=== PATIENT | female | born 1930 | race Caucasian/White ===

== ENCOUNTER 2018-11-08 11:06 | Inpatient (IN) ==
[2018-11-08] MEDS ORDERED: Lidocaine -MPF 4% 5 ML AMPUL ONE (11:19)
[2018-11-08] MEDS ORDERED: *HR* Succinylcholine 200 MG/10 ML VIAL IVP ONE (11:21)
[2018-11-08] MEDS ORDERED: Ondansetron 4 MG/2 ML VIAL ONE (11:21)
[2018-11-08] MEDS ORDERED: *HR* FentaNYL (PF) 100 MCG/2 ML VIAL ONE (11:21)
[2018-11-08] MEDS ORDERED: Dexamethasone 4 MG/ML VIAL ONE (11:21)
[2018-11-08] MEDS ORDERED: Lidocaine -MPF 2% 2 ML VIAL ONE (11:21)
[2018-11-08] MEDS ORDERED: *HR* Propofol 200 MG/20 ML VIAL IVP ONE (11:22)
[2018-11-08] MEDS ORDERED: CeFAZolin Syr 2,000MG/20 ML 2,000 MG/20 ML SYRINGE IVPB ONE (11:24)
--- NOTE | 2018-11-08 11:25 | Anesthesia Evaluation PreOp ---
Date of Encounter: 11/08/18 Time of Encounter: 11:23 - Past History Planned Operation: Left Robotic Total Hip Arthroplasty Cardiac History: Other (anemia transfused with 2 units of PRBC Tuesday) Pulmonary History: Denies Any Significant HX AUTO MECHANIC History: Denies Any Significant HX Other Medical History: Denies Any Significant HX, Other (osteoporosis) Anesthesia History: No Prior Anesthetic Complications, Past Anesthesia (tubal, [place] Teeth) : No Alcohol Use: none Drug use: none Medications and Allergies Amoxicillin 875 mg PO BID #20 tablet 02/03/17 [Rx] Guaifenesin [Mucinex] 600 mg PO BID #20 tab.er.12h 02/03/17 [Rx] Loratadine [Allergy Relief] 10 mg PO DAILY #30 tablet 02/03/17 [Rx] Allergy/AdvReac Type Severity Reaction Status Date / Time No Known Allergies Allergy Verified 10/31/18 12:52 - Meds/Allergy Pre-op Review Medications Reviewed: Yes Allergies Reviewed: Yes Beta Blockers on Current Med List: No Anesthesia Results - Labs Laboratory Tests 10/31/18 10/31/18 11/05/18 13:05 13:05 14:26 WBC 4.3 RBC 3.18 L Hgb 11.3 L D Hct 32.9 L Plt Count 335 INR 1.1 Sodium 138 Potassium 4.0 Chloride 104 Carbon Dioxide 24 BUN 15 Creatinine 0.48 L - Imaging EKG: report reviewed (SR) Anesthesia Exam Vital Signs/O2 Sat, Most Current Temp Pulse Resp BP Pulse Ox 98.0 F 65 18 145/67 98 11/08/18 11:30 11/08/18 11:30 11/08/18 11:30 11/08/18 11:30 11/08/18 11:30 NPO (# of Hours): > 8 hrs Pain Scale: 0 Pain Scale Used: Numeric (1 - 10) - HEENT Pupil (Motor): Pupils equal, EOMI Mallampati: I Teeth: Missing Denture Type: Upper: Complete Oral Opening: Greater than 3 - AUTO MECHANIC LOC: Oriented AUTO MECHANIC Motor: Normal RUE, Normal LUE, Normal RLE, Normal LLE, Normal Face AUTO MECHANIC Sensory: Normal: RUE, LUE, RLE, LLE, Face - Cardiac Rhythm: Regular Murmur: None JVD: No Carotid Bruit: No - Pulmonary Breath Sounds: bilateral Clear Respiratory Effort: Symmetrical Anesthesia Assess/Plan ASA Score: 3 Level of consciousness: Cooperative Anesthetic Plan: General Reason for No Neuroaxial/Regional Block: Patient refusal Autologous Blood: Yes Monitoring Plan: Standard Monitors Recovery Plan: PACU
[2018-11-08] MEDS ORDERED: Ringers Solution, Lactated 1,000 ML IVC SCH (11:30)
--- NOTE | 2018-11-08 12:00 | History & Physical Report ---
Date of Encounter: 11/08/18 Time of Encounter: 11:59 24 Hour HP Update - Instructions Instructions: If the History and Physical is less than 30 days old and was completed prior to A.M. admission and or procedure and has NOT been updated on calendar day of procedure please complete this update prior to performing procedure. - Update Patient reports changes in Medical Condition: No Changes in examination, assessment, or condition: No Changes in Medication: No Preop tests/diagnostics Reviewed: Yes Surgery Remains Indicated: Yes Consent for Planned Operative Procedure(s) Verified: Yes - Pre-Operative Checklist Preoperative Checklist Indicated: No Prophylactic Antibiotic Ordered: Yes Is VTE Prophylaxis Indicated?: Yes
[2018-11-08] MEDS ORDERED: Ethanol\\Acetic Acid\\Na Ace\\Ben 1,000 ML IRRIG.SOLN IR ONE (12:31)
--- NOTE | 2018-11-08 12:39 | Discharge Summary ---
Orders not resulted at time of discharge: Pending orders 11/08/18 01:00 XR hip complete LT [XR] Routine Hemoglobin and Hematocrit [HEME] Routine 11/08/18 12:23 Type and Screen [BBK] Stat Date of Encounter: 11/10/18 Time of Encounter: 09:00 - Discharge Diagnosis (1) Arthritis of left hip Priority: Primary Status: Chronic (2) Status post total hip replacement, left Priority: Primary Status: Acute (3) Acute blood loss anemia Priority: Secondary Status: Acute (4) Osteoporosis Priority: Secondary Status: Chronic Qualifiers: Osteoporosis type: unspecified Presence of current pathological fracture: unspecified Qualified Code(s): M81.0 - Age-related osteoporosis without current pathological fracture (5) Macrocytic anemia Priority: Secondary Status: Chronic - Hospital Course Hospital course: Ms. Stanley is a 88 year old female s/p Date of procedure: 11/08/18 Pre-op diagnosis: Left hip arthritis Procedure: Procedure: Left Total Hip Replacment robotic-assisted Patient developed postoperative fatigue and hypotension and dizziness and found to have acute blood loss anemia requiring 2 units of PRBCs 1 each on 11/09 and 11/10 respectively. Patient progressed well with resolution of these symptoms post-transfusions. Patient being discharged to [facility] for rehab and outpatient Ortho follow up has been arranged. - Time Spent with Patient Total time spent providing and/or coordinating discharge services: - Discharge Medications Prescriptions: New Aspirin Enteric Coated [Aspirin EC] 325 mg PO BID 10 Days #20 tablet. Tizanidine HCl 2 mg PO Q8H PRN 7 Days #21 tablet PRN Reason: Spasms Continued Acetaminophen [Extra Strength Non-Aspirin] 500 mg PO TID Alendronate Sodium 70 mg PO MO Calcium Carbonate/Vitamin D3 [Calcium 600 + Vit D Tablet] 1 tab PO BID Polyethylene Glycol 3350 [MiraLAX] 17 gm PO DAILY PRN PRN Reason: Constipation Vit C/Vit E/Lutein/Min/Sunflower-3 [Ocuvite Softgel] 1 cap PO DAILY Home Medications: Acetaminophen [Extra Strength Non-Aspirin] 500 mg PO TID 11/08/18 [History] Alendronate Sodium 70 mg PO MO 11/08/18 [History] Aspirin Enteric Coated [Aspirin EC] 325 mg PO BID 10 Days #20 tablet. 11/08/18 [Rx] Calcium Carbonate/Vitamin D3 [Calcium 600 + Vit D Tablet] 1 tab PO BID 11/08/18 [History] Polyethylene Glycol 3350 [MiraLAX] 17 gm PO DAILY PRN 11/08/18 [History] Vit C/Vit E/Lutein/Min/Sunflower-3 [Ocuvite Softgel] 1 cap PO DAILY 11/08/18 [History] Tizanidine HCl 2 mg PO Q8H PRN 7 Days #21 tablet 11/10/18 [Rx] Allergies/Adverse Reactions: Allergy/AdvReac Type Severity Reaction Status Date / Time No Known Allergies Allergy Verified 10/31/18 12:52 Date of admission: 11/08/18 Primary care physician: Dario Doran MD Discharging clinician: Humberto Thompson Anticipated date of discharge: 11/11/18 - VTE Documentation of Mechanical Device: Venous foot pump, device - Patient Status Disposition: Transfer Inpatient Rehab Fac Condition: Good Functional capacity at discharge: uses cane/walker Overall status at discharge: patient is progressing back to baseline - Discharge Instructions Follow Up With: Edin Martins MD [Partnered Physician] - 11/24/18 8:45 am Eva Lopez PAC [Physician Science Instructor] - 11/16/18 10:15 am (Also, November 24 @ 1300) Humberto Thompson MD [Partnered Physician] - 12/06/18 4:50 pm Dario Doran MD [Primary Care Provider] - Additional Instructions: Discharge Instructions: Total Hip Replacement Please call [facility] ([phone]), your Primary Care Physician, or report to the Emergency Room if you have any of the following symptoms: Nausea, vomiting, fever greater that 101.5, swelling, chest pain, shortness of breath, increased pain/redness/drainage/odor for your incision site, numbness/tingling, or any other concerning symptoms. ACTIVITY:Weight-bearing as tolerated for 8 weeks with hip dislocation precautions that physical therapy taught you. You may progress as tolerated under the guidance of your physical therapist. You do not need to sleep with a pillow between your legs. You can also seep on the operative side or on your stomach. Incentive Spirometer 10 times an hour. MEDICATIONS: Upon discharge resume your home medications. Take all the medications as prescribed. Take a stool softener if taking narcotic pain medications. Stool softeners are only effective if you drink enough fluids. Drink 6-8 glass of water or fluids a day, unless this is not allowed for another health problem. Despite using stool softeners, if you haven't had a bowel movement in 3 days, please switch to a gentle laxative. Gentle laxatives are sold over the counter. You should have a bowel movement within 24 hours, if not call the office. You will be discharged from the hospital with a prescription for pain medication. You are encouraged to decrease the use of narcotic pain medication as tolerated. Should you require a refill, please call the office. [facility] prescribes narcotic pain medication for only 4-6 weeks after surgery. If you require pain medication beyond this time period, you may be referred to your Primary Care Physician or to the Pain Clinic for further evaluation. Plan ahead for refills on pain medication as many narcotics either need to be picked up at the office or mailed. It is best to call 48-72 hours in advance of needing a prescription refill so you don't run out of medication. To help control the post-operative pain, you may take NSAIDs (Aleve,Advil, Motrin, ibuprofen, naprosyn) or Tylenol as prescribed on the bottle in addition to the pain medication. ANTICOAGULATION (blood thinners): Continue your Aspirin, Lovenox or Coumadin as prescribed to help prevent a blood clot in the leg or in the lungs. As long as your incision remains dry and you tolerate the NSAIDs (Aleve, Advil, Motrin, Ibuprofen, Naprosyn), it is OK to use the NSAIDS while you are taking your anticoagulation medication. Should your incision start to drain, stop the NSAID and contact our office. Common symptoms of blood clot in the legs include: localized pain, swelling, calf tenderness, redness or discoloration of the skin. Blood clot in the lung symptoms include: shortness of breath, rapid pulse, sweating, and chest pain that worsens with deep breathing, coughing up blood, lightheadedness, feelings of anxiety. If you experience any of these symptoms notify your physician immediately, go to the emergency room, or if having trouble breathing, call 911. WOUND CARE: Leave the dressing on for 7 to 10days. You may change the dressing if it is saturated greater than 50%. Do not get the dressing wet at anytime. Wash your hands with antibacterial soap, rinse and dry prior to any wound care. If you have dustin the visiting nurse or rehab facility can remove the stapes 10-14 days after surgery and place steri-strips across the wound. Leave the steri-strips in place until they fall off on their own. You may let water from the shower run on top of the steri-strips. If you do not have a visiting nurse or rehab facility, you will need to return to the office at 10-14 days for the dustin to be removed. If you have itching or redness around the dressing call the office. FOLLOW-UP: Please follow up with your surgeon in the orthopedic clinic in 6 weeks from the day of surgery. If you have dustin that need to be removed, you will need to come back to the office in 10-14 days from the day of surgery. - Diet and Activity Activity: as per physical therapy Diet: advance to your usual diet
[2018-11-08] MEDS ORDERED: Acetaminophen IV 1,000 MG/100 ML INFUS..BTL ONE (13:14)
[2018-11-08] MEDS ORDERED: EPHEDrine 50 MG/ML VIAL ONE (13:30)
[2018-11-08] MEDS ORDERED: Tranexamic Acid 1,000 MG/10 ML VIAL ONE ×2 (13:37→13:41)
--- NOTE | 2018-11-08 14:10 | Orthopedic Operative Note ---
Date of procedure: 11/08/18 Pre-op diagnosis: Left hip arthritis Procedure: Procedure: Left Total Hip Replacment robotic-assisted Estimated blood loss: 200 cc Hardware: Metal and polyethylene replacement. Soham DM Cup: 50 cup Femoral size 5 anteverted Anato stem Head:0head with Tania Procedural Notes: Grade 4 arthritic changes femoral head acetabular socket, procedure performed with robotic assistance. 3 millimeters longer operative versus nonoperative leg is measured by preoperative CT scan. Operative procedure: The patient was brought to the operating room and placed on the operating room table. After general anesthesia was administered the patient was placed in the lateral decubitus position with the operative leg up. All pressure points were padded appropriately and the head was stabilized in the neutral position. The operative extremity was prepped and draped in the sterile surgical fashion patient received IV antibiotic prior to skin incision. 3 Steinmann pins were placed in the iliac crest 3 cm proximal to the anterior superior iliac spine this was for the robotic-assisted sensor. This was done through a small 2 cm incision. A standard posterior approach is made to the operative hip, the incision was made through the skin and subcutaneous tissue hemostasis was obtained with Bovie cautery. Using careful sharp dissection the fascia was identified and incised exposing the external rotators. The greater trochanter was marked, and length was measured at this time utilizing robotic assistance. The external rotators were released off the greater trochanter and tagged with #2 FiberWire suture. The capsule was T'd open and the hip was brought into internal rotation. Patient noted to have grade 4 arthritic changes femoral head. The femoral neck cut was made at the appropriate level roughly Xmm proximal to the lesser trochanter aced on preoperative templating. An anterior capsulotomy was performed for the anterior retractor. Soft tissues removed from the acetabulum. Patient noted to have grade 4 arthritic changes acetabulum. The acetabulum reference point was confirmed. The acetabulum was then mapped with robotic assistance. Based on the preoperative plan the acetabulum was reamed in one step with a 50 reamer. The 50 acetabulum was impacted with robotic assistance and 39 degrees of abduction and 25 degrees of anteversion. The hip was brought back in to internal rotation and prepared with the wash box operator followed by the canal finder followed by the reaming process to a size 11 broaching process in 20 degrees anteversion. It was broached up to the appropriate size 5 Trial reduction revealed leg lengths close to normal. The femoral implant was impacted in place in 20 degrees of anteversion. Trial reduction found the hip to be stable with 0 head and Tania. The trials were removed and the real implants were impacted in place. The hip was reduced. The hip had excellent stability with forward flexion to 90 degrees adduction of 30 degrees and internal rotation of 60 degrees. The hip had no shuck. The hip sat with an antibacterial solution. It was irrigated out with 2 L of pulse irrigation. The Steinmann pins were removed. The hip was closed by the PA. The deep tissue was irrigated and closed deep with #1 PDS suture superficially with 0 PDS suture and skin was closed with Dermabond and zip tie. The patient was placed in a sterile dressing and abduction pillow. The patient was extubated and transferred to the recovery room in stable condition. Anesthesia: CARLINA Surgeon: Humberto Thompson Was there an trust operations assistant present: No Estimated blood loss (cc): 200 Condition: stable Disposition: PACU
[2018-11-08] MEDS ORDERED: *HR* HYDROMORPHONE 2 MG/ML VIAL ONE (14:22)
[2018-11-08] MEDS ORDERED: *HR* OxyCODONE Immed Rel 5 MG TABLET PO PRN (14:42)
[2018-11-08] MEDS ORDERED: *HR* HYDROmorphone (PF) 1 MG/ML SYRINGE IVP PRN (14:42)
[2018-11-08] MEDS ORDERED: *HR* Nalbuphine 10 MG/ML AMPUL IV PRN (14:42)
[2018-11-08] MEDS ORDERED: Acetaminophen IV 1,000 MG/100 ML INFUS..BTL IVPB ONE (14:42)
[2018-11-08] MEDS ORDERED: Albuterol 2.5 MG/3 ML NEBULIZER IH ONE (14:42)
[2018-11-08] MEDS ORDERED: *HR* Promethazine 25 MG/ML VIAL IVP PRN ×2 (14:42→15:36)
[2018-11-08] MEDS ORDERED: Ondansetron 4 MG/2 ML VIAL IVP ONE (14:42)
[2018-11-08] MEDS ORDERED: Ketorolac 15 MG/ML VIAL IVP ONE (14:42)
--- NOTE | 2018-11-08 14:44 | Anesthesia Evaluation Post Op ---
Date of Encounter: 11/08/18 - Discharge PostOp Status: Transfer Patient to floor (Patient's vital signs have been reviewed. Patient is stable postoperatively and has adequately recovered from anesthesia. Patient is determined to have stable airway patency and respiratory function including respiratory rate and oxygen saturation. Patient has a stable heart rate, blood pressure and adequate hydration. Patients mental status is acceptable. Patients temperature is appropriate. Pain and nausea are adequately controlled.)
[2018-11-08 15:17] LABS: Hematocrit 27.3 % (35.3-44.9)
[2018-11-08] MEDS ORDERED: Temazepam 15 MG CAPSULE PO PRN (15:36)
[2018-11-08] MEDS ORDERED: Naloxone 0.4 MG/ML INJ IVP PRN (15:36)
[2018-11-08] MEDS ORDERED: MOM Conc 10 ML UD.LIQ PO PRN (15:36)
[2018-11-08] MEDS ORDERED: Sennosides 8.6 MG TABLET PO PRN (15:36)
[2018-11-08] MEDS ORDERED: Ondansetron 4 MG/2 ML VIAL IVP PRN (15:36)
--- NOTE | 2018-11-08 16:08 | Anesthesia Evaluation Post Op ---
Date of Encounter: 11/08/18 Time of Encounter: 15:41 - Discharge PostOp Status: Transfer Patient to floor (Patient's vital signs have been reviewed. Patient is stable postoperatively and has adequately recovered from anesthesia. Patient is determined to have stable airway patency and respiratory function including respiratory rate and oxygen saturation. Patient has a stable heart rate, blood pressure and adequate hydration. Patients mental status is acceptable. Patients temperature is appropriate. Pain and nausea are adequately controlled)
[2018-11-08] MEDS: Ascorbic Acid 500 MG TABLET PO SCH (17:05)
[2018-11-08] MEDS: *HR* Enoxaparin 30 MG/0.3 ML SYRINGE SQ SCH (17:05)
[2018-11-08] MEDS ORDERED: *HR* Enoxaparin 30 MG/0.3 ML SYRINGE SQ SCH (18:00)
[2018-11-08] MEDS: *HR* OxyCODONE Immed Rel 5 MG TABLET PO PRN (20:49)
[2018-11-08] MEDS: HYDROcodone BIT/Homatropine 5 MG TABLET PO PRN (23:10)
[2018-11-09] MEDS: *HR* OxyCODONE Immed Rel 5 MG TABLET PO PRN ×3 (01:56→20:49)
[2018-11-09] MEDS: HYDROcodone BIT/Homatropine 5 MG TABLET PO PRN ×3 (03:11→15:07)
[2018-11-09] MEDS: *HR* Enoxaparin 30 MG/0.3 ML SYRINGE SQ SCH ×2 (05:53→16:30)
--- NOTE | 2018-11-09 06:25 | Orthopedics Progress Note ---
Date of Encounter: 11/09/18 Time of Encounter: 06:25 - Assessment and Plan (1) Acute blood loss anemia Current Visit: Yes Status: Acute Subjective Interval history: Patient was seen this morning doing well without complaints. Afebrile vital signs stable. Operative extremity: Neurovascularly intact Dressing clean dry and intact Calves nontender Assessment and plan: Continue with postoperative care Postop hematocrit 27 we will check H&H this morning Objective Vital signs: Vital Signs Temp Pulse Resp BP Pulse Ox 11/09/18 03:24 98.3 F 83 18 128/57 95 11/08/18 22:49 98.2 F 65 16 108/57 94 11/08/18 18:44 97.7 F 62 16 121/61 98 11/08/18 18:04 97.8 F 58 15 118/68 98 11/08/18 17:09 97.3 F L 65 15 123/66 11/08/18 16:23 97.4 F L 62 14 134/71 11/08/18 15:53 97.3 F L 63 15 132/72 95 11/08/18 15:39 98.2 F 57 14 157/58 98 11/08/18 15:29 56 15 126/52 97 11/08/18 15:19 73 17 111/61 96 11/08/18 15:09 97.1 F L 67 12 110/50 97 11/08/18 14:59 55 14 89/59 98 11/08/18 14:49 60 15 81/41 99 11/08/18 14:39 97.8 F 70 14 127/55 98 11/08/18 12:57 61 18 121/80 95 11/08/18 12:35 98.0 F 65 18 145/67 98 11/08/18 11:30 98.0 F 65 18 145/67 98 Intake and Output 11/08/18 11/08/18 11/09/18 15:59 23:59 07:59 Intake Total 100 / 100 Output Total 200 / 200 Balance -200 / -100 100 / -100 Intake: IV Fluids 100 / 100 Ancef 2,000 MG In 0.9 % Sodium 100 / 100 Chloride 100 ML @ 200 mls/hr IVPB Q8H RENETTA Rx#:[id number] Output: Estimated Blood Loss 200 / 200 Other: # Voids 1 1 Weight 50.802 kg - Labs CBC & BMP: 05/08/19 14:54 Labs: Abnormal lab results Hgb 9.0 g/dL (11.5-15.4) L D 11/08/18 14:54 Hct 27.3 % (35.3-44.9) L 11/08/18 14:54 Consult Discharge Plan - Plan Referrals: Dario Doran MD [Primary Care Provider] -
[2018-11-09 07:33] LABS: Basophils % 0.1 %; Eosinophils % 0.2 %; Hematocrit 25.9 % (35.3-44.9); Hemoglobin 8.3 g/dL (11.5-15.4); Immature Granulocytes % 0.4 % (0-4); Lymphocytes # 0.7 K/mcL (0.6-4.6); Mean Corpuscular Hemoglobin 34.4 pg (28.0-33.3); Mean Corpuscular Volume 107.5 fL (83.0-100.0); Mean Platelet Volume 10.9 fL (9.4-12.4); Monocytes # 0.8 K/mcL (0.0-1.3); Monocytes % 9.2 %; Neutrophils # 6.9 K/mcL (1.6-8.9); Nucleated Red Blood Cells 0.2 /100 WBC (0); Platelet Count 249 K/mcL (140-400); Red Blood Count 2.41 M/mcL (3.82-4.97); Red Cell Distribution Width 18.6 % (11.5-14.5); Segmented Neutrophils % 82.1 %
--- NOTE | 2018-11-09 08:16 | Event Note ---
Date of Encounter: 11/09/18 Time of Encounter: 08:30 Date of procedure: 11/08/18 Pre-op diagnosis: Left hip arthritis Procedure: Left Total Hip Replacment robotic-assisted POD#1 Patient seen at bedside. A&Ox3 Dressing and incision c/d/i No calf tenderness, erythema, or warmth. Neurovascularly intact b/l LE. Labwork, vitals, and medications reviewed. H/H 8.3/25.9 Pain control: Adequate Participating in PT. All questions and concerns addressed. Educated on use of incentive spirometer, ambulation, and hydration. Patient educated on post-operative restrictions and care. Addressed: Patient currently c/o only of fatigue. No abnl vitals present at this time. Will closely monitor for symptomatic anemia as patient has history of macrocytic anemia for which she had received 2 units PRBCs the week prior to surgery. D/C plan: ECF - awaiting placement
[2018-11-09 08:33] LABS: BUN/Creatinine Ratio 32 (6-26); Blood Urea Nitrogen 20 mg/dL (8-23); Calcium 8.3 mg/dL (8.6-10.3); Carbon Dioxide 22 mEq/L (23-29); Chloride 107 mEq/L (98-107); Glucose 141 mg/dL (70-105); Osmolality,Calculated 283 (280-300); Potassium 3.7 mEq/L (3.5-5.1); Sodium 134 mEq/L (136-145); eGFR For Non-African Americans > 60 (> 60)
[2018-11-09] MEDS ORDERED: NON-FORMULARY MEDICATION 1 EACH EACH (Vit C/Vit E/Lutein/Min/Omega-3 [Ocuvite Softgel] 1 C PO SCH (09:00)
[2018-11-09] MEDS: Multivit/Ca/Min/Fe/FA 1 TAB TABLET PO SCH (09:13)
[2018-11-09] MEDS: Cholecalciferol (D-3) 1,000 UNIT TABLET PO SCH (09:13)
[2018-11-09] MEDS: Ascorbic Acid 500 MG TABLET PO SCH ×2 (09:13→17:03)
[2018-11-09 12:31] LABS: Hematocrit 24.4 % (35.3-44.9); Hemoglobin 7.9 g/dL (11.5-15.4)
[2018-11-09] MEDS ORDERED: 0.9 % Sodium Chloride 250 ML ONE (16:43)
[2018-11-09] MEDS ORDERED: Acetaminophen IV 1,000 MG/100 ML INFUS..BTL IVPB PRN (17:02)
[2018-11-09] MEDS: Ringers Solution, Lactated 1,000 ML IVC SCH ×3 (19:18→20:51)
[2018-11-10] MEDS: tiZANidine 4 MG TABLET PO PRN ×2 (00:05→19:10)
[2018-11-10] MEDS: *HR* Enoxaparin 30 MG/0.3 ML SYRINGE SQ SCH ×2 (04:09→17:16)
[2018-11-10] MEDS: traMADol 50 MG TABLET PO PRN ×2 (04:09→13:43)
[2018-11-10 05:49] LABS: Basophils % 0.4 %; Eosinophils # 0.1 K/mcL (0.0-0.6); Eosinophils % 1.2 %; Hematocrit 25.6 % (35.3-44.9); Hemoglobin 8.6 g/dL (11.5-15.4); Immature Granulocytes % 0.2 % (0-4); Lymphocytes % 16.7 %; Mean Corpuscular HGB Conc 33.6 g/dL (31.6-35.5); Mean Corpuscular Hemoglobin 33.9 pg (28.0-33.3); Mean Corpuscular Volume 100.8 fL (83.0-100.0); Mean Platelet Volume 11.2 fL (9.4-12.4); Monocytes # 0.7 K/mcL (0.0-1.3); Monocytes % 11.8 %; Platelet Count 162 K/mcL (140-400); Red Blood Count 2.54 M/mcL (3.82-4.97); Red Cell Distribution Width 18.2 % (11.5-14.5); Segmented Neutrophils % 69.7 %
[2018-11-10 06:12] LABS: BUN/Creatinine Ratio 36 (6-26); Blood Urea Nitrogen 15 mg/dL (8-23); Calcium 8.8 mg/dL (8.6-10.3); Carbon Dioxide 23 mEq/L (23-29); Chloride 102 mEq/L (98-107); Glucose 110 mg/dL (70-105); Osmolality,Calculated 275 (280-300); Potassium 3.9 mEq/L (3.5-5.1); Sodium 132 mEq/L (136-145); eGFR For Non-African Americans > 60 (> 60)
--- NOTE | 2018-11-10 06:33 | Orthopedics Progress Note ---
Date of Encounter: 11/10/18 Time of Encounter: 06:33 - Assessment and Plan (1) Acute blood loss anemia Current Visit: Yes Status: Acute Subjective Interval history: Patient was seen this morning doing well without complaints. Afebrile vital signs stable. Operative extremity: Neurovascularly intact Dressing clean dry and intact Calves nontender Assessment and plan: Continue with postoperative care Postop hematocrit 25.6 Objective Vital signs: Vital Signs Temp Pulse Resp BP Pulse Ox 11/10/18 04:14 98.3 F 68 16 117/63 96 11/10/18 03:07 124/70 11/09/18 23:37 98.1 F 80 18 132/62 96 11/09/18 21:02 97 11/09/18 20:52 98.0 F 85 20 151/66 97 11/09/18 17:14 98.8 F 74 16 125/68 95 11/09/18 16:59 98.5 F 71 16 123/62 93 11/09/18 15:05 98.7 F 69 16 114/64 94 11/09/18 10:34 98.4 F 67 15 120/67 96 11/09/18 07:09 98.4 F 81 14 114/52 90 Intake and Output 11/09/18 11/09/18 11/10/18 15:59 23:59 07:59 Intake Total 550 / 550 100 / 100 Balance 550 / 550 100 / 100 Intake: IV Fluids 100 / 100 Ofirmev 1,000 mg/100 ml 1,000 100 / 100 mg In 100 ml @ 400 mls/hr IVPB Q8HR PRN Rx#:[id number] Oral 200 / 200 Blood Product 350 / 350 Rbcs Leuko Poor As-1 Unit 350 / 350 [id number] Other: # Voids 1 1 - Labs CBC & BMP: 11/10/18 05:20 11/10/18 05:20 Labs: Abnormal lab results RBC 2.54 M/mcL (3.82-4.97) L 11/10/18 05:20 Hgb 8.6 g/dL (11.5-15.4) L 11/10/18 05:20 Hct 25.6 % (35.3-44.9) L 11/10/18 05:20 MCV 100.8 fL (83.0-100.0) H D 11/10/18 05:20 MCH 33.9 pg (28.0-33.3) H 11/10/18 05:20 RDW 18.2 % (11.5-14.5) H 11/10/18 05:20 Nucleated RBCs/100 WBC 0.2 /100 WBC (0) H 11/09/18 06:37 Sodium 132 mEq/L (136-145) L 11/10/18 05:20 Carbon Dioxide 22 mEq/L (23-29) L 11/09/18 06:37 0.42 mg/dL (0.60-1.20) L 11/10/18 05:20 36 (6-26) H 11/10/18 05:20 Glucose 110 mg/dL (70-105) H 11/10/18 05:20 275 (280-300) L 11/10/18 05:20 Calcium 8.3 mg/dL (8.6-10.3) L 11/09/18 06:37 Crossmatch See Detail 11/08/18 12:23 - VTE Documentation of Mechanical Device: Venous foot pump, device Consult Discharge Plan - Plan Referrals: Dario Doran MD [Primary Care Provider] -
[2018-11-10] MEDS: Ascorbic Acid 500 MG TABLET PO SCH ×2 (08:04→17:16)
[2018-11-10] MEDS: *HR* OxyCODONE Immed Rel 5 MG TABLET PO PRN (08:04)
[2018-11-10] MEDS: Multivit/Ca/Min/Fe/FA 1 TAB TABLET PO SCH (08:04)
[2018-11-10] MEDS: Cholecalciferol (D-3) 1,000 UNIT TABLET PO SCH (08:04)
--- NOTE | 2018-11-10 08:22 | Physician Discharge Referral ---
ExtendedCare Referral Info Transfer To: [facility] Provider in Charge: Dr. Humberto Thompson - Diagnosis (1) Arthritis of left hip Priority: Primary Status: Chronic (2) Status post total hip replacement, left Priority: Primary Status: Acute (3) Osteoporosis Priority: Secondary Status: Chronic (4) Acute blood loss anemia Priority: Secondary Status: Acute (5) Macrocytic anemia Priority: Secondary Status: Chronic Expected Duration of Placement: less than 30 days Prognosis: Good Aware of Diagnosis: Patient Aware of Prognosis: Patient - Transfer Medications Prescriptions: Tizanidine HCl 2 mg PO Q8H PRN 7 Days #21 tablet PRN Reason: Spasms Home Medications: Acetaminophen [Extra Strength Non-Aspirin] 500 mg PO TID 11/08/18 [History] Alendronate Sodium 70 mg PO MO 11/08/18 [History] Aspirin Enteric Coated [Aspirin EC] 325 mg PO BID 10 Days #20 tablet. 11/08/18 [Rx] Calcium Carbonate/Vitamin D3 [Calcium 600 + Vit D Tablet] 1 tab PO BID 11/08/18 [History] Docusate Sodium [Colace] 100 mg PO BID 5 Days #10 capsule 11/08/18 [Rx] OxyCODONE Immed Rel [Roxicodone 5 MG] 5 mg PO Q6HR PRN 5 Days #20 tablet 11/08/18 [Rx] Polyethylene Glycol 3350 [MiraLAX] 17 gm PO DAILY PRN 11/08/18 [History] Vit C/Vit E/Lutein/Min/[place]-3 [Ocuvite Softgel] 1 cap PO DAILY 11/08/18 [History] Tizanidine HCl 2 mg PO Q8H PRN 7 Days #21 tablet 11/10/18 [Rx] Allergies/Adverse Reactions: Allergy/AdvReac Type Severity Reaction Status Date / Time No Known Allergies Allergy Verified 10/31/18 12:52 - Respiratory Orders Smoking Cessation: Smoking cessation has been advised. For more information, call the [place] Tobacco Quit Line at 4-236-HEKK-NOW. - Ancillary Orders May use pressure relief devices daily prn, May go on SHANITA w/family/respon libertarian w/meds at nurse discretion PRN, May consult with Dentist, Electrical Appliance Repairer, Principal Technical Specialist PRN - Mobility Orders Chair, Ambulate - Rehabiliation Orders Rehab Potential: Good Rehab Orders: Evaluation for Physical Therapy, Evaluation for Occupational Therapy Other: Total Hip replacement Precautions Apply cold therapy 3-6x/day for 20 minutes at a time. Encourage ambulation throughout the day and incentive spirometer 10x/hour. Elevate affected extremity as tolerated. Brace: Wear hip abduction pillow when laying/sleeping - Treatments Skin tear care topically daily PRN per policy List/Other: Opsite placed. Keep dressing intact until first follow up appointment. If greater than 50% saturated, notify office, remove dressing and place appropriate dressing back in place. Leave Zipline intact. Opsite dressing is water resistant, not water-proof. OK to shower, but do not get dressing wet. - Diet Orders Regular CERTIFICATION: I certify that the transfer of the above named patient to an Extended Care Facility is necessary for the continuing treatment of the diagnosis listed. The above information is true and accurate reflection of patient's current condition. Confidential - Redisclosure prohibited without a patient's written consent.
--- NOTE | 2018-11-10 08:23 | Event Note ---
Date of Encounter: 11/10/18 Time of Encounter: 12:30 Date of procedure: 11/08/18 Pre-op diagnosis: Left hip arthritis Procedure: Left Total Hip Replacment robotic-assisted POD#2 Patient seen at bedside. Daughter and spouse at bedside. A&Ox3 Patient c/o fatigue and difficulty with dizziness and pain with attempting to work with therapy. Dressing and incision c/d/i Tenderness to proximal thigh and incision region. No calf tenderness, erythema, or warmth. Neurovascularly intact b/l LE. Labwork, vitals, and medications reviewed. H/H 8.6/25.6 Pain control: Adequate Participating in PT. All questions and concerns addressed. Educated on use of incentive spirometer, ambulation, and hydration. Patient educated on post-operative restrictions and care. Addressed: Patient became symptomatic and had hemoglobin drop to 7.9/ 24.4 on 11/09/18 and received 1 unit PRBCs. Today patient intermittently hypotensive and c/o continued significant fatigue and difficulty with pain control. Discussed with Dr. Thompson again, will proceed with additional 1 unit PRBC transfusion. Will closely monitor for symptomatic anemia as patient has history of macrocytic anemia for which she had received 2 units PRBCs the week prior to surgery. D/C plan: ECF - plan for discharge to [facility] on 11/11
[2018-11-10] MEDS ORDERED: Furosemide 20 MG/2 ML VIAL IVP PRN (14:33)
[2018-11-10] MEDS ORDERED: 0.9 % Sodium Chloride 250 ML ONE (15:07)
[2018-11-10] MEDS: HYDROcodone BIT/Homatropine 5 MG TABLET PO PRN (17:19)
[2018-11-10] MEDS: 0.9 % Sodium Chloride 250 ML IVC SCH (17:26)
[2018-11-11] MEDS: *HR* Enoxaparin 30 MG/0.3 ML SYRINGE SQ SCH (04:15)
[2018-11-11] MEDS: *HR* OxyCODONE Immed Rel 5 MG TABLET PO PRN ×2 (04:15→12:32)
[2018-11-11] MEDS: Ascorbic Acid 500 MG TABLET PO SCH (08:43)
[2018-11-11] MEDS: Multivit/Ca/Min/Fe/FA 1 TAB TABLET PO SCH (08:43)
[2018-11-11] MEDS: traMADol 50 MG TABLET PO PRN (08:43)
[2018-11-11] MEDS: Cholecalciferol (D-3) 1,000 UNIT TABLET PO SCH (08:43)
[2018-11-11] MEDS: Ringers Solution, Lactated 1,000 ML IVC SCH ×2 (08:53→08:54)
[2018-11-11] MEDS: 0.9 % Sodium Chloride 250 ML IVC SCH (08:54)
[2018-11-11 10:31] LABS: Basophils % 0.3 %; Eosinophils % 0.4 %; Hematocrit 28.4 % (35.3-44.9); Hemoglobin 9.5 g/dL (11.5-15.4); Immature Granulocytes % 0.3 % (0-4); Lymphocytes # 0.7 K/mcL (0.6-4.6); Lymphocytes % 10.2 %; Mean Corpuscular HGB Conc 33.5 g/dL (31.6-35.5); Mean Corpuscular Hemoglobin 32.9 pg (28.0-33.3); Mean Corpuscular Volume 98.3 fL (83.0-100.0); Mean Platelet Volume 11.6 fL (9.4-12.4); Monocytes # 0.7 K/mcL (0.0-1.3); Monocytes % 10.3 %; Neutrophils # 5.4 K/mcL (1.6-8.9); Platelet Count 161 K/mcL (140-400); Red Blood Count 2.89 M/mcL (3.82-4.97); Red Cell Distribution Width 18.7 % (11.5-14.5); Segmented Neutrophils % 78.5 %
[2018-11-11 10:47] LABS: BUN/Creatinine Ratio 32 (6-26); Blood Urea Nitrogen 13 mg/dL (8-23); Calcium 8.5 mg/dL (8.6-10.3); Carbon Dioxide 24 mEq/L (23-29); Chloride 99 mEq/L (98-107); Glucose 118 mg/dL (70-105); Osmolality,Calculated 273 (280-300); Potassium 3.9 mEq/L (3.5-5.1); Sodium 131 mEq/L (136-145); eGFR For Non-African Americans > 60 (> 60)
[2018-11-11 11:29] VITALS: BP 124/66
[2018-11-11] MEDS: tiZANidine 4 MG TABLET PO PRN (13:55)
[2018-11-13] MEDS ORDERED: NON-FORMULARY MEDICATION 1 EACH EACH (Alendronate Sodium 70 MG) PO SCH (13:12)
== END 2018-11-11 14:20 | DRG 470 ==
LOC: SAMDAY 11:06 → 3NENU 15:43
PROVIDERS: ADMIT Orthopaedic Surgery; ATTEND Orthopaedic Surgery